=== PATIENT | male | born 1945 | race Hispanic/Latino ===

== ENCOUNTER 2019-07-29 13:00 | Inpatient (IN) | payer OTHER ==
[~2019-07-29] VITALS: Ht 201.9 cm; Wt 112.0 kg
[2019-09-02 13:05] VITALS: BP 178/95
[2019-09-02 14:03] LABS: BASOPHILS % (AUTO) 0.6 % (0.0-5.0); EOSINOPHILS % (AUTO) 2.6 % (0.0-8.0); HEMATOCRIT 42.3 % (42-54); LYMPHOCYTES % (AUTO) 31.4 % (21.0-51.0); MEAN CORPUSCULAR HEMOGLOBIN 32.1 pg (27.0-33.0); MEAN CORPUSCULAR VOLUME 94.4 fL (79-99); MONOCYTES % (AUTO) 8.2 % (3.0-13.0); NEUTROPHILS % (AUTO) 56.4 % (40.0-77.0); PLATELET COUNT (AUTO) 185 K/uL (130-400); RED BLOOD CELL COUNT(AUTO) 4.48 MIL/uL (4.50-6.20); RED CELL DISTRIBUTION WIDTH 12.8 % (11.0-15.5); WHITE BLOOD COUNT (AUTO) 6.2 K/uL (4.8-10.8)
[2019-09-02 14:29] LABS: CREATININE 1.1 mg/dL (0.5-1.5); POTASSIUM 3.9 mmol/L (3.5-5.1)
[2019-09-02 14:32] LABS: APPEARANCE,URINE Clear (CLEAR); BILIRUBIN,URINE Negative (NEGATIVE); COLOR,URINE Yellow (YELLOW); GLUCOSE, URINE (UA) Negative (NEGATIVE); KETONES,URINE Negative (NEGATIVE); LEUKOCYTE ESTERASE ,URINE Small (NEGATIVE); NITRATE,URINE Negative (NEGATIVE); OCCULT BLOOD,URINE Negative (NEGATIVE); PROTEIN,URINE Negative (NEGATIVE)
[2019-09-02 14:38] LABS: INR 0.91 (0.85-1.15); PROTHROMBIN TIME 9.9 SEC (9.6-11.6)
[2019-09-02 15:04] LABS: RBC,URINE 0-1 /HPF (0-1)
[2019-09-02 15:06] LABS: BACTERIA,URINE Rare /HPF (None Seen); SQUAMOUS EPITHELIAL CELL,UR Rare /HPF (0-2)
--- NOTE | 2019-09-03 13:03 | NUR ---
RE: ABNORMAL EKG INFORMED DR GRANT REGARDING ABNORMAL EKG AND PATIENT HISTORY. PER DR GRANT, EKG IS OK MAY PROCEED WITH SCHEDULED SURGERY.
[2019-09-03] MEDS ORDERED: HYDR25TA PO (14:11)
--- NOTE | 2019-09-03 15:30 | NUR ---
RE: ABNORMAL URINALYSIS INFORMED DR LARA REGARDING ABNORMAL UA, RECEIVED ORDERS FOR URINE CULTURE AND AND GENTAMICIN IVPB.
[2019-09-03] MEDS ORDERED: PHARMACY COMMUNICATION MISC SCH (17:15)
[2019-09-04] VITALS (19 sets, daily range): BP systolic 112–145; BP diastolic 45–81
[2019-09-04] MEDS: CEFAZOLIN SODIUM 1 GM VIAL IVP SCH ×3 (06:00→18:55)
[2019-09-04] MEDS ORDERED: GENTAMICIN SULFATE 80 MG in SODIUM CHLORIDE 0.9% 100 ML IV SCH (06:30)
[2019-09-04] MEDS ORDERED: LACTATED RINGERS 1000ML 1,000 ML IV ONE (07:50)
--- NOTE | 2019-09-04 08:00 | NUR ---
LENS IMPLANT BOTH EYES Addendum: 09/04/19 at 0904 by PASTOR MARTÍNEZ RN RN Amended: Links added.
[2019-09-04 08:08] LABS: APPEARANCE,URINE Clear (CLEAR); BILIRUBIN,URINE Negative (NEGATIVE); COLOR,URINE Yellow (YELLOW); GLUCOSE, URINE (UA) Negative (NEGATIVE); KETONES,URINE Negative (NEGATIVE); LEUKOCYTE ESTERASE ,URINE Trace (NEGATIVE); NITRATE,URINE Negative (NEGATIVE); OCCULT BLOOD,URINE Negative (NEGATIVE); PROTEIN,URINE Negative (NEGATIVE)
[2019-09-04 08:18] LABS: BACTERIA,URINE Few /HPF (None Seen); RBC,URINE 0-1 /HPF (0-1)
[2019-09-04 08:19] LABS: SQUAMOUS EPITHELIAL CELL,UR 0-2 /HPF (0-2)
[2019-09-04] MEDS ORDERED: GENTAMICIN SULFATE 240 MG in SODIUM CHLORIDE 0.9% 100 ML IV SCH (08:30)
[2019-09-04] MEDS ORDERED: CEFAZOLIN SODIUM 1 GM VIAL ONE (09:38)
[2019-09-04] MEDS ORDERED: TRANEXAMIC ACID 1000MG/10ML ONE ×2 (09:39→13:27)
[2019-09-04] MEDS ORDERED: FENTANYL CITRATE PF 50 MCG/1 ML 5ML AMP IV ONE (09:42)
[2019-09-04] MEDS ORDERED: ROCURONIUM 10MG/1ML SYR 10 MG/ML ML ONE ×2 (09:42→11:24)
[2019-09-04] MEDS ORDERED: LIDOCAINE PF 2% 5ML ABBOJECT ONE (09:42)
[2019-09-04] MEDS ORDERED: PROPOFOL 10 MG/ML 20ML VIAL IV ONE (09:42)
[2019-09-04] MEDS ORDERED: MIDAZOLAM HCL 1 MG/ML 2ML VIAL ONE (09:42)
[2019-09-04] MEDS ORDERED: ROPIVACAINE 0.5% 5MG/ML 30ML IJ ONE (09:58)
[2019-09-04] MEDS ORDERED: EPHEDRINE SULFATE 50 MG/ML AMPULE ONE ×2 (10:44→11:55)
[2019-09-04] MEDS ORDERED: GLYCOPYRROLATE 1 MG/5 ML SYRINGE ONE (10:54)
[2019-09-04] MEDS ORDERED: DEXAMETHASONE SOD PHOSPHATE 10MG/ML 1ML VIAL ONE (10:54)
[2019-09-04] MEDS ORDERED: NEOSTIGMINE 5MG/5ML SYR IV ONE (10:54)
[2019-09-04] MEDS ORDERED: ONDANSETRON HCL 4 MG/2 ML VIAL ONE ×2 (10:54→13:47)
[2019-09-04] MEDS ORDERED: CEFAZOLIN SODIUM 1 GM VIAL IRRIG ONE (11:22)
[2019-09-04] MEDS ORDERED: TEMAZEPAM 15 MG CAPSULE PO PRN (13:15)
[2019-09-04] MEDS ORDERED: TRAMADOL HCL 50 MG TABLET PO PRN (13:15)
[2019-09-04] MEDS ORDERED: POTASSIUM CHLORIDE 20MEQ/100ML 100 ML IV PRN (13:15)
[2019-09-04] MEDS ORDERED: OXYCODONE HCL 5 MG TAB PO PRN ×2 (13:15)
[2019-09-04] MEDS ORDERED: POTASSIUM CHLORIDE 10% ELIXIR 20 MEQ/15 ML UDCUP PO PRN (13:15)
[2019-09-04] MEDS ORDERED: CALCIUM CARBONATE 500 MG TABLET PO PRN (13:15)
[2019-09-04] MEDS ORDERED: POTASSIUM CHLORIDE 20 MEQ ERTAB PO PRN (13:15)
[2019-09-04] MEDS ORDERED: DiphenhydrAMINE HCL 50 MG/ML VIAL IVP PRN (13:15)
[2019-09-04] MEDS ORDERED: LIDOCAINE HCL-MPF 1% 2ML VIAL IV PRN (13:15)
[2019-09-04] MEDS ORDERED: ONDANSETRON HCL 4 MG/2 ML VIAL IVP PRN (13:15)
[2019-09-04] MEDS ORDERED: FERROUS FUMARATE 324 MG TABLET PO PRN (13:15)
[2019-09-04] MEDS ORDERED: KETOROLAC TROMETHAMINE 15MG/ML IV PRN (13:15)
[2019-09-04] MEDS ORDERED: MEPERIDINE-PF 25 MG/ML SYG ONE ×2 (13:51→14:01)
--- NOTE | 2019-09-04 15:06 | NUR ---
kenya calderon, rashad uploaded Addendum: 09/04/19 at 1506 by ADI MCKNIGHT RN CM Amended: Links added.
--- NOTE | 2019-09-04 17:30 | NUR ---
PT HAS SAT ON EDGE OF BED TO VOID 2X AND DID WELL, HE NOW IS REQUESTING TO WALK TO THE BATHROOM TO HAVE A POSSIBLE BOWEL MOVEMENT; I'VE ASKED HIM TO USE THE BEDSIDE COMMODE INSTEAD. HE AMBULATED 2-3 STEPS TO SIT ON COMMODE WITH ASSISTANCE OF CANE AND DID WELL WITH MINIMAL C/O PAIN; NO BOWEL MOVEMENT; PT ASSISTED BACK TO BED TO LIE DOWN.
--- NOTE | 2019-09-04 18:05 | NUR ---
CM NOTE/BSC REQUEST FOR BSC FROM DR. LARA. MEET WITH PATIENT IN ROOM. PER PATIENT, WILL BE RETURNING BACK TO [facility], NO PT SERVICES, HAS WALKER AND DOESNT NEED/DECLINING BSC BATHROOM IS BEDROOM AND CAN BE REACHED VIA WALKER. DR. LARA INFORMED, OK TO DISREGARD BSC REQUEST. KAREN MILLER, MADE AWARE.
[2019-09-04] MEDS: ACETAMINOPHEN EXTRA STRENGTH 500 MG TABLET PO SCH ×2 (18:55→20:44)
[2019-09-04] MEDS: CELECOXIB 200 MG CAP PO SCH (19:54)
[2019-09-04] MEDS: FAMOTIDINE 20MG TAB 20 MG TAB PO SCH (19:54)
[2019-09-04] MEDS: ASPIRIN 81MG TAB.CHEW PO SCH (19:54)
[2019-09-04] MEDS: PREGABALIN 25 MG CAP PO SCH (19:54)
[2019-09-04] MEDS: SODIUM CHLORIDE 0.9% 1000ML 1,000 ML IV SCH (19:55)
[2019-09-05] VITALS (7 sets, daily range): BP systolic 101–135; BP diastolic 57–84
[2019-09-05] MEDS: CEFAZOLIN SODIUM 1 GM VIAL IVP SCH (02:12)
[2019-09-05] MEDS: ACETAMINOPHEN EXTRA STRENGTH 500 MG TABLET PO SCH ×3 (04:28→19:59)
[2019-09-05] MEDS: HYDROCHLOROTHIAZIDE 25 MG TABLET PO SCH (04:29)
[2019-09-05 04:55] LABS: HEMATOCRIT 34.2 % (42-54); MEAN CORPUSCULAR HEMOGLOBIN 32.6 pg (27.0-33.0); MEAN CORPUSCULAR HGB CONC 34.5 g/dL (32.0-36.0); MEAN CORPUSCULAR VOLUME 94.5 fL (79-99); RED BLOOD CELL COUNT(AUTO) 3.62 MIL/uL (4.50-6.20); RED CELL DISTRIBUTION WIDTH 13.3 % (11.0-15.5); WHITE BLOOD COUNT (AUTO) 10.8 K/uL (4.8-10.8)
[2019-09-05 05:03] LABS: CREATININE 1.2 mg/dL (0.5-1.5); POTASSIUM 3.8 mmol/L (3.5-5.1)
[2019-09-05] MEDS: PREGABALIN 25 MG CAP PO SCH ×2 (08:38→19:59)
[2019-09-05] MEDS: FAMOTIDINE 20MG TAB 20 MG TAB PO SCH ×2 (08:38→20:00)
[2019-09-05] MEDS: CELECOXIB 200 MG CAP PO SCH ×2 (08:39→20:00)
[2019-09-05] MEDS: ASPIRIN 81MG TAB.CHEW PO SCH ×2 (08:40→20:00)
[2019-09-05] MEDS: POLYETHYLENE GLYCOL 3350 17 GM POWD.PACK PO SCH (08:50)
[2019-09-05] MEDS: TAMSULOSIN HCL 0.4 MG CAP.ER.24H PO SCH (08:50)
[2019-09-05] MEDS: SODIUM CHLORIDE 0.9% 1000ML 1,000 ML IV SCH (09:02)
--- NOTE | 2019-09-05 16:03 | NUR ---
DC PLAN VISITED WITH PATIENT. PATIENT LIVES WITH SON AND DAUGHTER IN [place]. SAID DAUGHTER IN LAW IS GOING TO BE HELPING HIM AT HOME. DID NOT NEED WALKER OR 3 IN 1. ALREADY HAS EQUIPMENT AT HOME. NO SERVICES AT THIS TIME. DOES NOT NEED THEM PER PATIENT. NURSE CALLED COUPLE HOURS LATER SAID THAT PATIENT CHANGED MIND AND WANTS STANDARD WALKER. THE WALKER HE HAS A IS A ROLLATOR WALKER. INFO FAXED TO [facility]. Addendum: 09/05/19 at 1607 by GEE HOYT RN CM Amended: Links added.
[2019-09-06 04:00] VITALS: BP 131/94
[2019-09-06] MEDS: ACETAMINOPHEN EXTRA STRENGTH 500 MG TABLET PO SCH (04:52)
[2019-09-06 08:31] VITALS: BP 131/76
[2019-09-06] MEDS: ASPIRIN 81MG TAB.CHEW PO SCH (08:55)
[2019-09-06] MEDS: PREGABALIN 25 MG CAP PO SCH (08:55)
[2019-09-06] MEDS: CELECOXIB 200 MG CAP PO SCH (08:55)
[2019-09-06] MEDS: POLYETHYLENE GLYCOL 3350 17 GM POWD.PACK PO SCH (08:55)
[2019-09-06] MEDS: FAMOTIDINE 20MG TAB 20 MG TAB PO SCH (08:55)
[2019-09-06] MEDS: HYDROCHLOROTHIAZIDE 25 MG TABLET PO SCH (08:55)
[2019-09-06] MEDS: TAMSULOSIN HCL 0.4 MG CAP.ER.24H PO SCH (08:55)
[2019-09-06 11:27] VITALS: BP 124/77
[2019-09-06] MEDS ORDERED: TRAM50TA4 PO (11:34)
[2019-09-06] MEDS ORDERED: ASPI-1005 PO (11:34)
--- NOTE | 2019-09-06 12:07 | NUR ---
INSTRUCTIONS DISCHARGE INSTRUCTIONS GIVEN TO PATIENT USING TEACH BACK. F/U APPOINTMENT WILL BE MADE BY PATIENT ON MONDAY TO SEE DR. LARA ON MONDAY DUE TO OFFICE BEING CLOSED TODAY. NEW PRESCRIPTIONS PLACED IN DISCHARGE PACKET ALONG WITH ALL PRINTED INFORMATION AND MD INSTRUCTIONS. IV REMOVED WITH TIP INTACT. DIRECT PRESSURE APPLIED UNTIL BLEEDING CONTROLLED THEN SITE COVERED WITH GAUZE AND SECURED WITH TAPE. NO QUESTIONS OR CONCERNS. PENDING RIDE HOME.
--- NOTE | 2019-09-06 15:48 | NUR ---
DC PLAN PATIENT DISCHARGED HOME. WALKER GIVEN TO PATIENT BY THE [facility]. NO HOME HEALTH SET UP. PATIENT DID NOT WANT SAID DAUGHTER IN LAW WILL HELP AT HOME. Addendum: 09/06/19 at 1550 by GEE HYOT RN CM Amended: Links added.
[2019-09-07] MEDS ORDERED: BISACODYL 10 MG SUPP.RECT RC PRN (13:15)
== END 2019-09-06 13:20 | disposition home or self-care (01) | DRG 470 ==
LOC: EDSTATUS 09-02 11:00 → DAHIP 09-04 06:26 → 3DH 09-04 14:32
PROVIDERS: ADMIT Orthopaedic Surgery; ATTEND Orthopaedic Surgery
PROC: 3E0T3BZ Introduction of Anesthetic Agent into Peripheral Nerves and Plexi, Percutaneous Approach (ICD-10-PCS; 2019-09-04)
PROC: 0SRC0J9 Replacement of Right Knee Joint with Synthetic Substitute, Cemented, Open Approach (ICD-10-PCS; principal; 2019-09-04 10:27)
DX: M17.11 Unilateral primary osteoarthritis, right knee (principal); F17.200 Nicotine dependence, unspecified, uncomplicated; N40.0 Benign prostatic hyperplasia without lower urinary tract symptoms; Z88.5 Allergy status to narcotic agent; Z88.7 Allergy status to serum and vaccine; Z88.8 Allergy status to other drugs, medicaments and biological substances
CPT/HCPCS: 36415; 80048; 81001; 85025; 85027; 85610; 86850; 86900; 86901; 87088; 87641; 88305; 88311; 93005; 97039; G0378; J0690; J1100; J1580; J1885; J2001; J2175; J2250; J2405; J2704; J2710; J2795; J3010; J3490; J7120